=== PATIENT | female | born 1930 | race Caucasian/White ===

== ENCOUNTER 2017-02-14 16:24 | Emergency (ER) | payer MEDICARE, OTHER ==
[2017-02-14 13:35] LABS: BASOPHILS 0.4 %; BASOPHILS ABSOLUTE 0.03 10/3/uL (0.0-0.16); EOSINOPHILS 1.5 %; ER CBC TAT 0 Hrs 03 Mins; IMMATURE GRANULOCYTES 0.1 %; IMMATURE GRANULOCYTES ABSOLUTE 0.01 10/3/uL (0.0-0.11); LYMPHOCYTES 35.7 %; LYMPHOCYTES ABSOLUTE 2.41 10/3/uL (0.67-4.30); MEAN CORPUS HGB CONC 32.9 g/dL (32.0-36.0); MEAN CORPUSCULAR VOLUME 91.1 fL (80-100); MEAN PLATELET VOLUME 11.5 fL (9.2-13.0); MONOCYTES 6.4 %; MONOCYTES ABSOLUTE 0.43 10/3/uL (0.21-1.20); NEUTROPHILS 55.9 %; NEUTROPHILS ABSOLUTE 3.78 10/3/uL (2.02-8.40); RBC DISTRIBUTION WIDTH 13.9 % (12.0-16.0); RED CELL COUNT 4.17 10/6/uL (4.0-5.6); WHITE BLOOD CELLS 6.8 10/3/uL (4.5-10.5)
[2017-02-14 13:36] LABS: HEMOGLOBIN 12.5 g/dL (12.0-16.0); MANUAL DIFF NO %; PLATELET COUNT 121 10/3/uL (150-400)
[2017-02-14 13:47] LABS: PARTIAL THROMBO TIME 28.8 SEC (22.5-37.2)
[2017-02-14 13:50] LABS: PROTIME (NOT ORD) 13.4 SEC (12.0-14.5)
[2017-02-14 13:52] LABS: A/G RATIO 0.9 (0.7-1.9); ALBUMIN 3.3 G/DL (3.5-5.0); ALKALINE PHOSPHATASE 67 U/L (45-117); BUN (BLOOD UREA NITROGEN) 13 MG/DL (6-23); CALCIUM, SERUM 9.5 MG/DL (8.5-10.4); CHLORIDE, SERUM 107 MMOL/L (96-112); CO2 (CARBON DIOXIDE) 29 MMOL/L (24-34); CREATININE 0.91 MG/DL (0.55-1.02); GFR AFRICAN AMERICAN 66 ML/MIN (>=60); GFR NON AFRICAN AMERICAN 57 ML/MIN (>=60); GLOBULIN 3.6 G/DL (2.5-4.1); GLUCOSE, SERUM 88 MG/DL (60-99); SGOT(AST) 14 U/L (5-40); SGPT(ALT) 16 U/L (5-65); TOTAL BILIRUBIN 0.3 MG/DL (0-1.2); TOTAL PROTEIN 6.9 G/DL (6.0-8.5)
[2017-02-14 13:53] LABS: SODIUM, SERUM 143 MMOL/L (135-148)
[~2017-02-14 16:24] MED LIST: ADVIL PO; ASAB PO; ATRONASAL3 NAS; BIOTIN5 MG OR; FISH-EPA1000 MG PO; I40 PO; KLONO1 PO; LORT7 PO; MIRALAXPKT PO; MULTIVITAMI1 PO; OS500+D PO; OSTEO BI-FLEX1 EACH PO; PREVAGEN; RED YEAS1 OR; SLO-NIACIN250 MG PO; T PO; VITAMIN B-121000 MC1 SL
[2017-02-14 16:25] LABS: TROPONIN I <0.02 NG/ML (<0.05)
[2017-02-14 18:26] LABS: CPK 123 U/L (0-200)
== END 2017-02-14 18:25 | disposition home or self-care (01) ==
LOC: ER 16:24
PROVIDERS: Emergency Medicine
DX: K62.5 Hemorrhage of anus and rectum (principal); I10 Essential (primary) hypertension; Z79.899 Other long term (current) drug therapy; Z79.82 Long term (current) use of aspirin
CPT/HCPCS: 36415; 80053; 82550; 84484; 85025; 85610; 85730; 86850; 86900; 86901; 93005; 99283